=== PATIENT | male | born 1960 | race Caucasian/White ===

== ENCOUNTER 2017-03-25 14:05 | Emergency (ER) | payer BC, OTHER ==
[~2017-03-25] VITALS: Ht 172.7 cm; Wt 62.2 kg
[2017-03-25 14:12] VITALS: TEMP 36.6; Ht 172.7 cm; Wt 62.2 kg
[2017-03-25] MEDS ORDERED: PRED20TA PO (14:32)
--- NOTE | 2017-03-25 14:47 | EMERGENCY ROOM VISIT NOTE ---
History First contact with patient: 14:27 Chief Complaint: DIZZY Stated Complaint: Lightheaded/Dizzy Nursing Triage Summary: Pt. brought to exam room by EMS with complaints of dizziness and shortness of breath. States has been being treated for vertigo x1 year with meclizine, but started prednisone yesterday because the meclizine was not effective. Sees Dr. Stahl at [facility] in [place]. History of Present Illness The patient is a 56 year old male who presents to the Emergency Room with complaints of lightheadedness and dizziness. The patient was at work this afternoon and started to turn weight and his colleagues called 911. On arrival his blood pressure was elevated and then low and he was complaining of dizziness and nausea. The patient has a history of vertigo and has been treated with meclizine, but stopped using it last week because it was not helping. He was seen by his physician yesterday and switched to prednisone, his dose today being 20 mg twice daily. He states that when he woke up this morning he felt okay, but throughout the day started feeling more nauseous and his stomach was feeling like it was in knots. The patient also states that he had numbness and tingling in his feet. Currently on evaluation the patient states that he is still having some nausea but otherwise is feeling better. The patient denies any fever, chills, abdominal pain, chest pain, headache, or weakness. Review of Systems See HPI for pertinent positives and negatives. A total of ten systems were reviewed and were otherwise negative. Past Medical/Surgical History Medical Problems: (1) Kidney stones Surgical Problems: (1) Hx of cholecystectomy Social History Smoking Status: Current Every Day Smoker Alcohol Use: none Marital Status: single Occupation Status: employed Current/Historical Medications Scheduled Prednisone (Prednisone), 20 MG PO BID Allergies Coded Allergies: No Known Allergies (Verified , 03/25/17) Physical Exam Vital Signs Date Time Temp Pulse Resp B/P (MAP) Pulse Ox O2 Delivery O2 Flow Rate FiO2 03/25/17 16:57 71 20 114/78 98 Room Air 03/25/17 15:32 74 16 102/68 97 Room Air 03/25/17 15:11 73 104/63 77 111/75 89 97/76 03/25/17 14:15 79 03/25/17 14:12 36.6 72 19 115/77 99 Room Air Physical Exam GENERAL: Awake, alert, well-appearing, in no distress HENT: Normocephalic, atraumatic. Oropharynx unremarkable. EYES: Normal conjunctiva. Sclera non-icteric. NECK: Supple. No nuchal rigidity. RESPIRATORY: Clear to auscultation. CARDIAC: Regular rate, normal rhythm. Extremities warm and well perfused. Pulses equal. ABDOMEN: Soft, non-distended. No tenderness to palpation. No rebound or guarding. No masses. RECTAL: Deferred. MUSCULOSKELETAL: Chest examination reveals no tenderness. The back is symmetrical on inspection without obvious abnormality. There is no CVA tenderness to palpation. No joint edema. LOWER EXTREMITIES: Calves are equal size bilaterally and non-tender. No edema. No discoloration. NEURO: Normal sensorium. No sensory or motor deficits noted. SKIN: No rash or jaundice noted. Medical Decision & Procedures Laboratory Results 03/25/17 15:07 Red Blood Count 4.86, Mean Corpuscular Volume 85.4, Mean Corpuscular Hemoglobin 29.0, Mean Corpuscular Hemoglobin Concent 34.0, Mean Platelet Volume 9.4, Neutrophils (%) (Auto) 73.5, Lymphocytes (%) (Auto) 17.6, Monocytes (%) (Auto) 8.5, Eosinophils (%) (Auto) 0.0, Basophils (%) (Auto) 0.2, Neutrophils # (Auto) 6.17, Lymphocytes # (Auto) 1.48, Monocytes # (Auto) 0.71, Eosinophils # (Auto) 0.00, Basophils # (Auto) 0.02 03/25/17 15:07 Test 03/25/17 15:07 White Blood Count 8.40 K/uL (4.8-10.8) Red Blood Count 4.86 M/uL (4.7-6.1) Hemoglobin 14.1 g/dL (14.0-18.0) Hematocrit 41.5 % (42-52) Mean Corpuscular Volume 85.4 fL (80-100) Mean Corpuscular Hemoglobin 29.0 pg (25-34) Mean Corpuscular Hemoglobin Concent 34.0 g/dl (32-36) Platelet Count 291 K/uL (130-400) Mean Platelet Volume 9.4 fL (7.4-10.4) Neutrophils (%) (Auto) 73.5 % Lymphocytes (%) (Auto) 17.6 % Monocytes (%) (Auto) 8.5 % Eosinophils (%) (Auto) 0.0 % Basophils (%) (Auto) 0.2 % Neutrophils # (Auto) 6.17 K/uL (1.4-6.5) Lymphocytes # (Auto) 1.48 K/uL (1.2-3.4) Monocytes # (Auto) 0.71 K/uL (0.11-0.59) Eosinophils # (Auto) 0.00 K/uL (0-0.5) Basophils # (Auto) 0.02 K/uL (0-0.2) RDW Standard Deviation 37.6 fL (36.4-46.3) RDW Coefficient of Variation 12.0 % (11.5-14.5) Immature Granulocyte % (Auto) 0.2 % Immature Granulocyte # (Auto) 0.02 K/uL (0.00-0.02) Anion Gap 9.0 mmol/L (3-11) Est Creatinine Clear Calc Drug Dose 64.4 ml/min Estimated GFR () 85.3 Estimated GFR (Non- 73.6 BUN/Creatinine Ratio 14.5 (10-20) Calcium Level 9.5 mg/dl (8.5-10.1) Total Bilirubin 0.4 mg/dl (0.2-1) Aspartate Amino Transf (AST/SGOT) 13 U/L (15-37) Alanine Aminotransferase (ALT/SGPT) 21 U/L (12-78) Alkaline Phosphatase 80 U/L (45-117) Troponin I < 0.015 ng/ml (0-0.045) Total Protein 7.8 gm/dl (6.4-8.2) Albumin 3.7 gm/dl (3.4-5.0) Globulin 4.1 gm/dl (2.5-4.0) Albumin/Globulin Ratio 0.9 (0.9-2) Medications Administered Medications (Trade) Dose Ordered Sig/Juan Antonio Route Start Time Stop Time Status Last Admin Dose Admin Sodium Chloride 1,000 ml @ 999 mls/hr Q1H1M STAT IV 03/25/17 14:52 03/25/17 15:52 DC 03/25/17 14:52 999 MLS/HR Medical Decision Patient is a 56-year-old male that presents the emergency department with dizziness and nausea. Etiologies such as benign positional vertigo, tumor, infection, hypoglycemia, electrolyte abnormalities, cardiac sources, intracerebral event, toxicologic, neurologic, as well as others were entertained. Labs: CBC, CMP, Troponin Fluids: 1L NS Medications: Zofran 4mg IV Impression Primary Impression: Lightheadedness Patient is a 56 year old male that presents to the emergency department with lightheadedness and nausea - Patient was treated with 1L NS but refused IV Zofran - Patient states that the symptoms resolved and no longer feeling nauseous - Lab work appears to be within normal limits - Discharge patient home with instructions to adequately hydrate and continue medications as prescribed Departure Information Dispostion Home / Self-Care Condition GOOD Referrals Shellie Neville M.D. (PCP) Patient Instructions My [facility]
[2017-03-25] MEDS ORDERED: ONDANSETRON INJ 2 MG/ML 2 ML VIAL IV STA (14:52)
[2017-03-25] MEDS ORDERED: SODIUM CHLORIDE 0.9% 1000ML 1,000 ML IV STA (14:52)
[2017-03-25 15:26] LABS: BASO % 0.2 %; BASO ABS # 0.02 K/uL (0-0.2); COMPLETE YES; HEMATOCRIT 41.5 % (42-52); IG% 0.2 %; LYMPH % 17.6 %; LYMPH ABS # 1.48 K/uL (1.2-3.4); MEAN CELL VOLUME 85.4 fL (80-100); MEAN PLATELET VOLUME 9.4 fL (7.4-10.4); MONO % 8.5 %; NEUT % 73.5 %; PLATELET COUNT 291 K/uL (130-400); RED BLOOD COUNT 4.86 M/uL (4.7-6.1)
[2017-03-25 15:44] LABS: ALT/SGPT 21 U/L (12-78); BLOOD UREA NITROGEN 16 mg/dl (7-18); BUN/CREATININE RATIO 14.5 (10-20); CALCIUM 9.5 mg/dl (8.5-10.1); CARBON DIOXIDE 25 mmol/L (21-32); CHLORIDE 110 mmol/L (98-107); GLUCOSE 97 mg/dl (70-99); SODIUM 144 mmol/L (136-145)
[2017-03-25 15:49] LABS: ALB/GLOB RATIO 0.9 (0.9-2); ALKALINE PHOSPHATASE 80 U/L (45-117); AST/SGOT 13 U/L (15-37)
--- NOTE | 2017-03-25 16:27 | DIAGNOSTIC IMAGING REPORT ---
CHEST 2 VIEWS ROUTINE CLINICAL HISTORY: Evaluate for pneumonia. COMPARISON STUDY: Chest radiograph August 02, 2013. FINDINGS: Lung volumes are normal. There is no pneumothorax or pleural effusion. There is no consolidation to suggest pneumonia. There is no evidence of pulmonary edema. Cardiomediastinal silhouette is normal. Linear left basilar opacity is suggestive of atelectasis. IMPRESSION: No acute cardiopulmonary findings. Electronically signed by: Gomez Maguire M.D. 03/25/2017 4:25 PM Dictated Date/Time: 03/25/2017 4:21 PM
[2017-03-25 16:57] VITALS: BP 114/78; PULSE 71; O2SAT 98
--- NOTE | 2017-03-25 18:50 | EMERGENCY ROOM VISIT NOTE ---
History Report prepared by Nitish: Carolyn Desai Under the Supervision of: Dr. Yan Dodd M.D. First contact with patient: 14:27 Chief Complaint: DIZZY Stated Complaint: Lightheaded/Dizzy Nursing Triage Summary: Pt. brought to exam room by EMS with complaints of dizziness and shortness of breath. States has been being treated for vertigo x1 year with meclizine, but started prednisone yesterday because the meclizine was not effective. Sees Dr. Stahl at [facility] in [place]. History of Present Illness The patient is a 56 year old male who presents to the Emergency Room with complaints of constant dizziness beginning 1 days prior to arrival. The patient states that he feels lightheaded and nauseated. The patient has a history of vertigo and has been treated with Meclizine for the past year. He states the symptoms feel different than his typical vertigo and he denies the room spinning. The patient states he went to bed last night and woke up with morning feeling better. While he was at work he became very dizzy and lightheaded. He also notes shortness of breath for the past 6 days. He denies this being brought out with exertion. In fact he went mountain biking and did not have symptoms. His blood pressure was fluctuating from low to high today. The patient notes tingling in his feet. He denies chest pain. The patient has been on a Prednisone taper. 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 Review of Systems See HPI for pertinent positives & negatives. A total of 10 systems reviewed and were otherwise negative. Past Medical & Surgical Medical Problems: (1) Kidney stones Surgical Problems: (1) Hx of cholecystectomy Family History Patient reports no known family medical history. Social History Smoking Status: Current Every Day Smoker Alcohol Use: none Marital Status: single Occupation Status: employed Current/Historical Medications Scheduled Prednisone (Prednisone), 20 MG PO BID Allergies Coded Allergies: No Known Allergies (Verified , 03/25/17) Physical Exam Vital Signs Date Time Temp Pulse Resp B/P (MAP) Pulse Ox O2 Delivery O2 Flow Rate FiO2 03/25/17 16:57 71 20 114/78 98 Room Air 03/25/17 15:32 74 16 102/68 97 Room Air 03/25/17 15:11 73 104/63 77 111/75 89 97/76 03/25/17 14:15 79 03/25/17 14:12 36.6 72 19 115/77 99 Room Air Physical Exam Constitutional: Vital signs reviewed. Eyes: Pupils are equal round reactive to light. Conjunctiva are noninjected. ENT: Pharynx is clear without erythema or exudate. Mucous membranes are moist. Neck supple without meningeal signs. Respiratory: Clear to auscultation bilaterally. Breath sounds are equal bilaterally. Cardiovascular: Regular rate and rhythm. No rubs or gallops. GI: Soft, nondistended and nontender. Bowel sounds are present. Musculoskeletal: No peripheral edema. No lower extremity tenderness. Integumentary: No cyanosis. Neurological: The patient is awake and alert. No focal deficits. Psychiatric: Normal affect. Medical Decision & Procedures ER Provider Diagnostic Interpretation: X-ray results as stated below per interpretation by me and the radiologist: CHEST 2 VIEWS ROUTINE CLINICAL HISTORY: Evaluate for pneumonia. COMPARISON STUDY: Chest radiograph August 02, 2013. FINDINGS: Lung volumes are normal. There is no pneumothorax or pleural effusion. There is no consolidation to suggest pneumonia. There is no evidence of pulmonary edema. Cardiomediastinal silhouette is normal. Linear left basilar opacity is suggestive of atelectasis. IMPRESSION: No acute cardiopulmonary findings. Electronically signed by: Gomez Maguire M.D. 03/25/2017 4:25 PM Dictated Date/Time: 03/25/2017 4:21 PM Laboratory Results 03/25/17 15:07 Red Blood Count 4.86, Mean Corpuscular Volume 85.4, Mean Corpuscular Hemoglobin 29.0, Mean Corpuscular Hemoglobin Concent 34.0, Mean Platelet Volume 9.4, Neutrophils (%) (Auto) 73.5, Lymphocytes (%) (Auto) 17.6, Monocytes (%) (Auto) 8.5, Eosinophils (%) (Auto) 0.0, Basophils (%) (Auto) 0.2, Neutrophils # (Auto) 6.17, Lymphocytes # (Auto) 1.48, Monocytes # (Auto) 0.71, Eosinophils # (Auto) 0.00, Basophils # (Auto) 0.02 03/25/17 15:07 Test 03/25/17 15:07 White Blood Count 8.40 K/uL (4.8-10.8) Red Blood Count 4.86 M/uL (4.7-6.1) Hemoglobin 14.1 g/dL (14.0-18.0) Hematocrit 41.5 % (42-52) Mean Corpuscular Volume 85.4 fL (80-100) Mean Corpuscular Hemoglobin 29.0 pg (25-34) Mean Corpuscular Hemoglobin Concent 34.0 g/dl (32-36) Platelet Count 291 K/uL (130-400) Mean Platelet Volume 9.4 fL (7.4-10.4) Neutrophils (%) (Auto) 73.5 % Lymphocytes (%) (Auto) 17.6 % Monocytes (%) (Auto) 8.5 % Eosinophils (%) (Auto) 0.0 % Basophils (%) (Auto) 0.2 % Neutrophils # (Auto) 6.17 K/uL (1.4-6.5) Lymphocytes # (Auto) 1.48 K/uL (1.2-3.4) Monocytes # (Auto) 0.71 K/uL (0.11-0.59) Eosinophils # (Auto) 0.00 K/uL (0-0.5) Basophils # (Auto) 0.02 K/uL (0-0.2) RDW Standard Deviation 37.6 fL (36.4-46.3) RDW Coefficient of Variation 12.0 % (11.5-14.5) Immature Granulocyte % (Auto) 0.2 % Immature Granulocyte # (Auto) 0.02 K/uL (0.00-0.02) Anion Gap 9.0 mmol/L (3-11) Est Creatinine Clear Calc Drug Dose 64.4 ml/min Estimated GFR () 85.3 Estimated GFR (Non- 73.6 BUN/Creatinine Ratio 14.5 (10-20) Calcium Level 9.5 mg/dl (8.5-10.1) Total Bilirubin 0.4 mg/dl (0.2-1) Aspartate Amino Transf (AST/SGOT) 13 U/L (15-37) Alanine Aminotransferase (ALT/SGPT) 21 U/L (12-78) Alkaline Phosphatase 80 U/L (45-117) Troponin I < 0.015 ng/ml (0-0.045) Total Protein 7.8 gm/dl (6.4-8.2) Albumin 3.7 gm/dl (3.4-5.0) Globulin 4.1 gm/dl (2.5-4.0) Albumin/Globulin Ratio 0.9 (0.9-2) Laboratory results as reviewed by me. Medications Administered Medications (Trade) Dose Ordered Sig/Juan Antonio Route Start Time Stop Time Status Last Admin Dose Admin Sodium Chloride 1,000 ml @ 999 mls/hr Q1H1M STAT IV 03/25/17 14:52 03/25/17 15:52 DC 03/25/17 14:52 999 MLS/HR ECG Indication: other (dizziness) Rate (beats per minute): 77 Rhythm: normal sinus Findings: no acute ischemic change, no ectopy ED Course 1451: The patient was evaluated in room B9. A complete history and physical exam was performed. 1452: Zofran Inj 4 mg IV, Sodium Chloride 1,000 ml @ 999 mls/hr IV. 1554: The patient is feeling better at this time. 1640: The patient is feeling better, he has no complaints currently. 1645: Upon reevaluation, the patient appeared to have improvement of his symptoms. I discussed tonight's findings with him. He verbalized agreement of the treatment plan. He was discharged home. Medical Decision This is a 56-year-old male who presents with dizziness and dyspnea. Differential diagnosis includes infection, metabolic derangement, anemia, pneumonia, cardiac disease, dehydration. I did perform a limited focused review of portions of the patient's old chart on the electronic medical record. The patient has had no recent pertinent visits to this hospital. Medication Reconciliation: I attest that I have personally reviewed the patient' s current medication list. Blood Pressure Screening: Patient was found to have normal blood pressure on screening and does not require follow-up. I did evaluate the patient as noted above. IV access was established. 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 I did personally review the patient's 12-lead EKG and chest x-ray as described above. I did order and review the patient's blood work as noted in the electronic medical record. He is slightly orthostatic. He was given normal saline and Zofran. I did discuss the test results with the patient. He is asymptomatic at this time. He has very general symptoms and was advised to follow up very closely with his doctor for further evaluation. There is no indication for hospitalization at this time. He was discharged in good condition. He was given return instructions as outlined below. Resident Physician Supervision Note: I did evaluate and examine this patient myself. I did guide management for the patient. I agree with the resident's (Dr. Haines) assessment as discussed. Please see the resident's dictation for further details. Impression Primary Impression: Generalized weakness Scribe Attestation The scribe's documentation has been prepared under my direct and personally reviewed by me in its entirety. I confirm that the note above accurately reflects all work, treatment, procedures, and medical decision making performed by me. Departure Information Dispostion Home / Self-Care Referrals Shellie Neville M.D. (PCP) Forms HOME CARE DOCUMENTATION FORM, IMPORTANT VISIT INFORMATION Patient Instructions ED Dizziness [facility], My [facility] Additional Instructions You have been examined and treated today on an emergency basis only. This is not a substitute for, or an effort to provide, complete comprehensive medical care. It is impossible to recognize and treat all injuries or illnesses in a single emergency department visit. It is therefore important that you follow up closely with your physician. Call as soon as possible for an appointment. Return for worsening symptoms or if you develop fever, vomiting, chest discomfort or pain or any other concerning symptoms.
== END 2017-03-25 17:05 | disposition home or self-care (01) ==
LOC: EDBD 14:05 → EDSEX 14:05 → C.EDB 14:07
DX: R53.1 Weakness (principal); Z87.442 Personal history of urinary calculi; F17.210 Nicotine dependence, cigarettes, uncomplicated

== ENCOUNTER 2025-04-18 06:45 | Observation (INO) ==
--- NOTE | 2025-04-18 08:11 | History & Physical Bridge Note ---
Date of Service April 18, 2025 History & Physical Bridge Note I have examined the patient, reviewed the History & Physical and in the interval since the performance of the History & Physical I have noted the following changes of clinical significance: no changes noted 64-year-old with CAD on coronary CTA.Technically limited study. Appears to have proximal LAD stenosis. Symptoms are predominantly JASON. Class II-III. Patient will undergo diagnostic cath +/- PCI.
--- NOTE | 2025-04-18 08:12 | Pre Anesthesia Assessment ---
Date of Service April 18, 2025 Pre Sedation Assessment Vital Signs Temp Pulse Resp BP Pulse Ox O2 Del Method 04/18/25 07:10 36.6 C 61 14 139/77 99 Room Air Cardiovascular RRR, no murmur, no edema Respiratory normal respiratory effort, lungs clear to auscultation Pre-Sedation Airway Assessment Smoking Status: Former smoker Hx Sleep Apnea: No Short, Thick Neck: No Thyromental Distance: > or= 3.5 Finger Breadths Oral Cavity: + Dental Abnormalities Mallampati Class: III Mallampati 3 ASA: ASA3 ASA 3 NPO Status Date of Last Intake of Fluids: 04/17/25 Time of Last Intake of Fluids: 17:00 Date of Last Intake of Solid Food: 04/17/25 Time of Last Intake of Solid Foods: 17:00 Notes The planned sedation has been discussed with the patient. Informed Consent was obtained. I have identified the patient, determined the appropriateness of sedation and have assessed the patient immediately prior to the procedure. All medicine(s) and interventions are by my order.
--- NOTE | 2025-04-18 09:42 | Post Anesthesia Assessment ---
Date of Service April 18, 2025 Post Sedation Assessment Vital Signs Temp Pulse Resp BP Pulse Ox O2 Del Method 04/18/25 07:10 36.6 C 61 14 139/77 99 Room Air Recovery Score Activity: Moves 4 extremities Respiration: Deep Breath/Cough Circulation: +/-20% PreAnes Value Consciousness: Fully Awake Oxygen Saturation: > 92% On Room Air Discharge Sedation Level of Care: Fast Track Phase II Post Sedation Plan On clinical assessment, the patient appears to have tolerated the sedation without complications. Patient is recovering as anticipated. Patient will continue to be monitored by nursing and may be discharged when sedation discharge criteria are met per below protocol. Upon Completions of procedure up to 15 minutes continue every 5 minute vital signs and the P.A.R. score; then discharge to a Phase I or Fast Track to Phase II per the following guidelines: * Discharge Patient to appropriate Phase II area if PAR is 8 or greater or return to pre- procedure baseline. The post - procedure orders will be as directed. * If PAR score is less than 8 or not return to pre-procedure baseline then patient will follow Phase I monitoring till PAR is reached for Phase II. The Phase I may be done in procedure room or may call to secure a Phase I area. * If naloxone or flumazenil are used for reversal, hold in Phase I for continued monitoring from when last reversal dose was given for a minimum of 60 minutes or longer pending the nurse and/or physician discretion of patient condition before discharge to Phase II. Please call the Sedation Physician to re-evaluate and complete post-note for discharge to Phase II area. Do NOT discharge from procedure sedation or Phase 1 until post- sedation evaluation note is complete by procedure /sedation MD Sedation Discharge Instructions to be given to the patient at discharge to home. [facility] Procedure Codes (Charges) Indication for Procedure Indication for procedure: JASON abnormal cor CTA Sedation/Anesthesia Procedure 1: Sedation/Anesthesia: 27017 Mod Sedation by the same physician;Init15 Min Child Age 5 & Up (initial 15 min, start 836) Total Sedation Time (minutes): 60 Procedure 2: Sedation/Anesthesia: 97181 Mod Sedation by the same physician; Ea [id number] Minutes (additional 45 min, end 09)
[2025-04-18] MEDS: HEPARIN (PORCINE) 1000 UNIT/ML 10 ML (CATH LAB USE ONLY) ONE (09:46)
[2025-04-18] MEDS: OPTIRAY 350 ONE (09:47)
[2025-04-18] MEDS: MIDAZOLAM HCL 1 MG/ML 2ML VIAL ONE (09:47)
[2025-04-18] MEDS: NITROGLYCERIN/D5W 100MCG/ML 20ML SYR ONE (09:48)
[2025-04-18] MEDS: niCARdipine 2,000 MCG/20 ML SYR ONE (09:48)
[2025-04-18] MEDS: ASPIRIN 81 MG CHEW ONE (09:48)
[2025-04-18] MEDS: ASPIRIN 81 MG CHEW PO STA (09:49)
[2025-04-18] MEDS: TICAGRELOR 90 MG TAB ONE (09:49)
[2025-04-18 09:55] LABS: iSTAT Art Bld Gas Base Excess -4.0 meg/L (-9-1.8)
--- NOTE | 2025-04-18 10:18 | Cardiac Catheterization ---
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 Cardiac Status Clinical evaluation leading to the procedure CAD Presenation: Stable angina Anginal Classification: CCS III Heart Failure: No Cardiogenic Shock within 24 Hours: No Cardiac Arrest within 24 Hours: No Imaging Studies Past 6 Months: Yes Cardiac CTA: Yes - 1VD Coronary Anatomy Dominant: Right Left Main (% Stenosis): Normal LAD (% Stenosis): Proximal (Heavy calcification to 85% ), Mid (Continuation of proximal disease calcified) and Distal (50%) D1 (% Stenosis): Normal D2 (% Stenosis): Normal D3 (% Stenosis): Ostial (40%) Circumflex (% Stenosis): Normal OM1 (% Stenosis): Normal OM2 (% Stenosis): Normal OM3 (% Stenosis): Normal L PL1 (% Stenosis): Normal RCA (% Stenosis): Proximal (Diffuse up to 40%) and Mid (20 to 30%) R PDA (% Stenosis): Normal R PL1 (% Stenosis): Normal Diagnostic Physicians Name: Zain Wilde MD, PhD Closure Device Percutaneous Entry Location: Radial Closure Device: Radial Band Recommendations: Medical Therapy and/or Counseling and PCI without planned CABG PCI Indication: Stable Angina Lesion Segment Name: Proximal to mid LAD Culprit Artery: Yes Stenosis Prior to Rx (%): 85% Chronic Total Occlusion: No Pre-Procedure DANNIE Flow: 3 Previously Treated Lesion: No Lesion Complexity: High/C Lesion Length (mm): 12 Thrombus Present: No Bifurcation Lesion: Yes Guidewire Across Lesion: Yes Intraprocedure Events Significant Disection: No Perforation: No Cardiac Cath Procedure Full Procedure Date April 18, 2025 Pre-Procedure Diagnosis Pre-Procedure Diagnosis: Angina and Cardiothoracic Symptom (Positive coronary angiography by CT) AUC Score AUC Score: 08 Post-Procedure Diagnosis Post-Procedure Diagnosis: Severe CAD and Successful PCI Procedure(s) Performed Procedure(s) Performed: Coronary Angiography, Drug Eluting Stent and Procedure (Intracoronary lithotripsy) Machine Operator Farmworker Zain Wilde MD, PhD Estimated Blood Loss Estimated Blood Loss: 10 cc Medication(s) Medication(s): Fentanyl, Heparin, Lidocaine 1%, Nicardipine, Nitroglycerin and Versed Summary of Findings Brief description: Patient was brought to the cardiac catheterization suite where he was shaved and prepped in a sterile fashion. Sedated using IV Versed and fentanyl. Soft tissues of the right wrist were anesthetized using 2 mL of 1% Xylocaine. The right radial artery was accessed with a modified Seldinger technique and a 6 Romanian radial artery glide sheath was placed. Patient was provided anticoagulation with IV heparin and antispasmodics including nicardipine and nitroglycerin. All catheters were advanced and exchanged over a 0.035 J-tip wire. Left coronary angiography in orthogonal views with a 5 Romanian [place] 4 diagnostic catheter. Right coronary angiography in orthogonal views a 5 Romanian [address] Diagnostic catheters were removed. Decision was made to proceed with PCI of the proximal to mid LAD. This corresponded to the severe coronary disease found on coronary CTA. ACT was checked and additional heparin was provided as needed to maintain therapeutic anticoagulation. This was repeated throughout the case. A 6 Romanian EBU 3.0 guide catheter was used to engage the left main coronary. A BMW versa guidewire was advanced and positioned distally in the LAD. A 2.5 x 12 mm shockwave lithotripsy balloon was advanced and positioned across the lesion. The balloon was inflated to 6 gerber and lithotripsy run was performed twice. Balloon deflated and shockwave removed. Shell Coremaker angiography. 3.0 x 12 mm shockwave lithotripsy balloon was then advanced into position across the lesion. Is inflated to 6 gerber and lithotripsy was performed twice. Balloon was deflated and shockwave removed. A 3.0 x 18 mm Fromberg drug-eluting stent was attempted to be delivered. However, this was unsuccessful. It was removed. A guide liner was advanced over the coronary wire. Then the 3.0 x 18 mm Alexandru drug-eluting stent was reintroduced. This successfully delivered across the lesion in the LAD. Stent was deployed at 14 gerber. Stent balloon was then removed. A 3.25 x 8 mm NC Albert balloon was advanced to post dilate. Distal part of the stent was postdilated at 12 gerber sparing the distal edge. The midportion was postdilated to 14 gerber and the proximal portion at 17 gerber. The balloon, GuideLiner, and guidewire were all removed. Final angiographic evaluation was performed. Guide catheter was then removed. Radial artery sheath was removed. Hemostasis was obtained using a TR band. Patient remained hemodynamically stable and asymptomatic. He was returned to the recovery area. This ended the case. Coronary angiography findings: LMT-distal calcification, mild luminal irregularities. Vessel bifurcates into LAD and circumflex. LAD-large and transapical. Heavily calcified in the proximal to mid segment. There is an 85% stenosis. LAD gives a small D1, a large septal branch, and then a small D2. There is then a large branching D3 which has ostial 40% stenosis. Just after this the distal LAD has a 50% stenosis. DANNIE-3 flow. YFr-ykvor-mmfcudg and nondominant. Travels in the AV groove. Provides a high arising large caliber OM1 followed immediately by a medium caliber OM 2. Circumflex and gives a large atrial branch and traverses further distally in the AV groove where gives a large branching OM 3. After this the most distal part of the AV groove vessel becomes much smaller in caliber and provides a small posterolateral branch. The circumflex and its branches have no more than mild luminal irregularities. RCA-this is large caliber and dominant. Bifurcates distally into a large PDA and a large branching posterolateral. Proximal RCA with diffuse up to 40% stenosis. The mid segment has an ectatic portion after the proximal stenosis and then mild 20 to 30% stenosis. Distally there is no disease. The posterolateral and PDA branches have no disease. PCI of LAD-0% residual stenosis post PCI No evidence of dissection or perforation post PCI DANNIE-3 flow post PCI Summary: 1. Severe calcific LAD stenosis as described. Culprit for symptoms and findings on coronary CTA. 2. Successful complex PCI of the LAD with lithotripsy followed by drug-eluting stent implantation. 3. Dual antiplatelet therapy with aspirin 81 mg daily and Brilinta 90 mg p.o. twice daily for 1 to 2 years. 4. Guideline directed medical therapy for secondary prevention of coronary disease to include; low-dose aspirin, high intensity statin therapy, beta- sana, plus or minus YUNIOR inhibitor/ARB. Hemodynamics Rest Ao:: 102/63 mmHg Final Ao: 128/66 mmHg LV: Not performed Recommendations Recommendations: Medical Therapy and/or Counseling and PCI without planned CABG Radiation Exposure (mGy) 1977 mGy. Fluoroscopy time 12.9 minutes Contrast (mls) 180 cc Anesthesia 1 mg Versed, 25 mcg fentanyl IV. 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 Any exceptions are noted below. [facility] [place] Procedure Codes Cardiac Catheterization Procedure 1: Cardiovascular Cath Procedures: 82672 Coronaries Moderate Sedation Procedure 1: Sedation/Anesthesia: 02053 Mod Sedation by the same physician;Init15 Min Child Age 5 & Up (Initial 15 minutes, start time 0837) Procedure 2: Sedation/Anesthesia: 12094 Mod Sedation by the same physician; Ea [id number] Minutes (Additional 45 minutes, end time 0937) Angioplasty Procedure 1: Cardiovascular Angioplasty Procedures: 37167 Perq Trluml Coronry Lithotrp Stenting Procedure 1: Cardiovascular Stent Procedures: 04466 Perc transcatheter placement of intracoronary stent(s), with ang PG Care Time/CCT Total # of Minutes Spent Total Time Spent with Patient: Total time spent is greater than 50% in coordination of care (as documented) at patient's floor/unit and/or counseling patient:
[2025-04-18] MEDS: ENOXAPARIN INJ 40 MG/0.4 ML SYR SQ SCH (12:24)
[2025-04-18] MEDS: ROSUVASTATIN CALCIUM 10 MG TAB PO SCH (12:25)
[2025-04-18] MEDS: TICAGRELOR 90 MG TAB PO SCH (20:51)
[2025-04-18] MEDS: METOPROLOL TARTRATE 25 MG TAB PO SCH (20:51)
[2025-04-19 05:50] LABS: Hematocrit (blood only) 43.1 % (42.0-52.0); Hemoglobin 14.3 g/dl (14.0-18.0); Mean Corpuscular Hemoglobin 28.9 pg (25.0-34.0); Mean Corpuscular Volume 87.2 fL (80.0-100.0); Platelet Count 213 K/uL (130-400); RDW Standard Deviation 39.6 fL (36.4-46.3); Red Blood Count 4.94 M/uL (4.70-6.10); White Blood Count 6.22 K/ul (4.8-10.8)
[2025-04-19 06:03] LABS: Creatinine Clr Calc Pharmacy 72.5 ml/min
[2025-04-19] MEDS: ASPIRIN 81 MG ECTAB PO SCH (08:24)
--- NOTE | 2025-04-19 11:13 | Electrocardiogram Report ---
Test Reason : Blood Pressure : */* mmHG Vent. Rate : 47 BPM Atrial Rate : 47 BPM P-R Int : 200 ms QRS Dur : 82 ms QT Int : 448 ms P-R-T Axes : 59 50 34 degrees QTcB Int : 396 ms Sinus bradycardia Otherwise normal ECG When compared with ECG of 18-Jan-2025 10:59, No significant change was found Confirmed by Wilmer Vigil ([id number]) on 04/19/2025 11:10:16 AM Referred By: Zain Wilde Confirmed By: Wilmer Vigil
--- NOTE | 2025-04-19 17:33 | Discharge Summary ---
Date of Service April 19, 2025 Admission HPI Per Admitting Provider Presented for elective outpatient cardiac cath. Found to have severe LAD stenosis and underwent complex PCI of the LAD. Admitted for observation status and initiation of appropriate therapy. Admission Exam (Per Admitting) Constitutional WD/WN, vitals as above Neck No JVD Respiratory Clear to auscultation bilaterally. No wheezing, rhonchi, or rales. Cardiovascular Regular rate and rhythm. Neurologic Cognition is intact. Speech is fluent. No focal deficits. 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 He is high risk and this will be titrated as an outpatient. (2) Chest pain: Found to have severe LAD stenosis. Underwent coronary lithotripsy followed by PCI of the LAD. He has been placed on dual antiplatelet therapy with aspirin 81 mg daily and Brilinta 90 mg p.o. twice daily. Guideline directed medical therapy includes low-dose aspirin, beta-sana, and high intensity statin therapy. Additional outpatient titration. Patient should participate in cardiac rehab and we also recommend that he follow-up within 1 to 4 weeks in the cardiology clinic. Plan Patient admitted under observation status post PCI of the LAD. No adverse events overnight. Initiated on guideline directed medical therapy for secondary prevention of coronary disease as well as dual antiplatelet therapy. He remained stable and was therefore discharged on 04/19/2025. Plan for outpatient follow-up. Coding Level of Care Code 13264 IN/OBS DISCH 30 MIN/LESS Diagnoses Atherogenic dyslipidemia E78.5 Chest pain R07.9
== END 2025-04-19 14:11 | disposition home or self-care (01) ==
LOC: CC 06:45 → 2S 06:45
PROC: CLB.CCO (2025-04-18 08:00)